=== PATIENT | female | born 1950 | race Caucasian/White ===

== ENCOUNTER 2018-02-03 11:24 | Inpatient (IN) | payer MEDICARE, OTHER ==
[~2018-02-03] VITALS: Ht 167.6 cm; Wt 90.5 kg
[~2018-02-03 11:24] MED LIST: ABILIFY5 MG PO; ALEVE 220MG220 MG PO; ASPIRIN 81M81 MG/TA2 PO; GLUCOPHAGE500 MG/TAB PO; KLONOPIN WAFE0.25 MG PO; LIPITOR 40MG TA40 MG PO; LOPRESSOR100 MG PO; LOTENSIN 1010 MG/TAB PO; MULTIPLE VITAMI1 CAP PO; MYSOLINE 5050 MG/TAB PO; NEURONTIN800 MG/TAB PO; NIACIN500 M4 PO; NORCO 325 MG-7.1 TAB PO; SINGULAIR 110 MG/TAB PO; SYNTHROID0.137 MG; WELLBUTRIN XL300 M1 PO
[2018-04-12] VITALS (11 sets, daily range): BP systolic 103–141; BP diastolic 52–78; PULSE 55–87; TEMP 97.7–971
[2018-04-12] MEDS ORDERED: CELEXA 20MG20 MG/TAB PO (07:10)
[2018-04-12] MEDS ORDERED: KLONOPIN 0.5MG0.5 MG PO (07:11)
[2018-04-13] VITALS (7 sets, daily range): BP systolic 105–127; BP diastolic 45–59; PULSE 63–90; TEMP 97.8–98.5
[2018-04-13 07:18] LABS: HEMOGLOBIN 9.7 g/dl (12.5-16.0)
[2018-04-13 07:19] LABS: HEMATOCRIT 28.9 % (37.0-47.0)
[2018-04-14 03:02] VITALS: BP 120/51; PULSE 67; TEMP 98
[2018-04-14] MEDS ORDERED: ASPI325T6 PO (06:38)
[2018-04-14] MEDS ORDERED: NORCO 325 MG-7.1 TAB PO (06:39)
[2018-04-14] MEDS ORDERED: ROXICODONE 55 MG/TAB PO (06:39)
[2018-04-14 07:48] VITALS: BP 128/54; PULSE 64; TEMP 97.9
[2018-04-14 11:00] VITALS: BP 146/65; PULSE 67; TEMP 98.7
== END 2018-04-14 14:40 | disposition home or self-care (01) | DRG 470 ==
LOC: JCC 04-12 06:51
PROVIDERS: Orthopaedic Surgery
PROC: 0SRC0J9 Replacement of Right Knee Joint with Synthetic Substitute, Cemented, Open Approach (ICD-10-PCS; principal; 2018-04-12 11:10)
DX: M17.11 Unilateral primary osteoarthritis, right knee (principal); Z85.43 Personal history of malignant neoplasm of ovary; I10 Essential (primary) hypertension; E11.9 Type 2 diabetes mellitus without complications; Z87.891 Personal history of nicotine dependence
CPT/HCPCS: A4314; A9284; C1713; C1776; J0690; J2250; J2704; J3010; J7120

== ENCOUNTER → 2018-04-05 | Outpatient (CLI) | payer MEDICARE, OTHER ==
[2018-04-05 11:30] LABS: HIV 1/2 Antibodies Non-Reactive; HIV-1p24 Antigen Non-Reactive
== END ==
LOC: COL.LAB 10:11
PROVIDERS: Orthopaedic Surgery
DX: Z01.812 Encounter for preprocedural laboratory examination (principal); M17.11 Unilateral primary osteoarthritis, right knee